=== PATIENT | male | born 1995 | race Caucasian/White ===

== ENCOUNTER 2017-09-10 11:46 | Emergency (ER) | payer OTHER ==
[2017-09-10] MEDS ORDERED: Ketorolac 60 MG/2 ML SDV IM ONE (12:35)
[2017-09-10] MEDS ORDERED: Ondansetron 4 MG Tab.DIS PO ONE ×2 (12:35→13:06)
--- NOTE | 2017-09-10 12:41 | EDM.PDOC ---
ED HPI GENERAL MEDICAL PROBLEM - General Chief Complaint: Drug or Alcohol Abuse Stated Complaint: POSSIBLE OD Time Seen by Provider: 09/10/17 12:25 Source of Information: Reports: Patient, RN History Limitations: Reports: No Limitations - History of Present Illness INITIAL COMMENTS - FREE TEXT/NARRATIVE: 22 yo male developed dental pain a couple days ago. He has been taking supratherapeutic doses of acetaminophen without relief. Now also has nausea, vomiting and diarrhea with some diffuse abdominal pain. No fever or facial swelling. Has an appt to see his dentist this coming Tuesday. Onset: Gradual Onset Date: 09/09/17 Duration: Hour(s):, Waxing/Waning Location: Reports: Face (L mandible tooth pain also), Abdomen Quality: Reports: Other (crampy abdominal pain) Severity: Moderate Improves with: Reports: None Worsens with: Reports: None Context: Reports: Other (unknown) Associated Symptoms: Reports: Nausea/Vomiting, Other (diarrhea). Denies: Fever/ Chills Treatments [employer]: Reports: Acetaminophen (Taking more than indicated on the bottle ) - Related Data Allergies Allergy/AdvReac Type Severity Reaction Status Date / Time No Known Allergies Allergy Verified 09/10/17 12:11 Home Meds: Home Meds Hydrocodone/Acetaminophen [Rahway 5-325] 1 - 2 tab PO Q4H PRN #14 tablet [Rx] Ondansetron [Zofran ODT] 4 mg PO Q6H PRN #10 tab.dis 09/10/17 [Rx] Past Medical History - Past Health History Medical/Surgical History: Denies Medical/Surgical History Social & Family History - Tobacco Use Smoking Status *Q: Current Every Day Smoker Years of Tobacco use: 4 Packs/Tins Daily: 1 ED ROS GENERAL - Review of Systems Review Of Systems: See Below Constitutional: Reports: No Symptoms HEENT: Reports: Other (tooth pain) Respiratory: Reports: No Symptoms Cardiovascular: Reports: No Symptoms Endocrine: Reports: No Symptoms GI/Abdominal: Reports: Abdominal Pain, Diarrhea, Decreased Appetite, Nausea, Vomiting. Denies: Black Stool, Bloody Stool, Constipation, Distension, Flatus, Hematemesis, Hematochezia, Melena, Stool Incontinence : Reports: No Symptoms Musculoskeletal: Reports: No Symptoms Skin: Reports: No Symptoms Neurological: Reports: No Symptoms ED EXAM, GI/ABD - Physical Exam Exam: See Below Exam Limited By: No Limitations General Appearance: Alert, WD/WN, No Apparent Distress Eyes: Bilateral: Normal Appearance Ears: Normal External Exam, Normal Canal, Hearing Grossly Normal Nose: Normal Inspection, Normal Mucosa, No Blood Throat/Mouth: Normal Inspection, Normal Lips, Normal Oropharynx, Normal Voice, No Airway Compromise, Other (Most of his teeth are in very poor condition, L mandibular premolar is very tender with percussion. ) Head: Atraumatic, Normocephalic Neck: Normal Inspection, Supple, Non-Tender. No: Lymphadenopathy (R), Lymphadenopathy (L) Respiratory/Chest: No Respiratory Distress, Lungs Clear, Normal Breath Sounds, No Accessory Muscle Use Cardiovascular: Regular Rate, Rhythm, No Edema GI/Abdominal Exam: Normal Bowel Sounds, Soft, No Distention, Tender Back Exam: Normal Inspection. No: CVA Tenderness (R), CVA Tenderness (L) Extremities: Normal Inspection, Normal Range of Motion, Non-Tender, No Pedal Edema Neurological: Alert, Oriented, CN II-XII Intact, Normal Cognition, No Motor/ Sensory Deficits Psychiatric: Normal Affect, Normal Mood Skin Exam: Warm, Dry, Intact, Normal Color, No Rash Lymphatic: No Adenopathy Course - Vital Signs Text/Narrative:: Toradol 60 mg IM, Zofran ODT 4 mg SL x 2, dicyclomine 20 mg po-feeling better after these meds. Orthostatic vitals-negative Last Recorded V/S: Last Vital Signs Temp 35.6 C 09/10/17 12:17 Pulse 83 09/10/17 12:17 Resp 20 09/10/17 12:17 BP 143/82 H 09/10/17 12:17 Pulse Ox 98 09/10/17 12:17 Orthostatic Blood Pressure [ 111/78 Standing] Orthostatic Blood Pressure [ 104/80 Sitting] Orthostatic Blood Pressure [ 115/73 Supine] - Orders/Labs/Meds Orders: Active Orders 24 hr Category Date Time Status Orthostatic Vital Signs [RC] ASDIRECTED Care 09/10/17 12:35 Active Meds: Medications Discontinued Medications Generic Name Dose Route Start Last Admin Trade Name Freq PRN Reason Stop Dose Admin Dicyclomine HCl 20 mg 09/10/17 12:43 09/10/17 13:21 Bentyl PO 09/10/17 12:44 20 mg ONETIME ONE Administration Ketorolac Tromethamine 60 mg 09/10/17 12:35 09/10/17 12:42 Toradol IM 09/10/17 12:36 60 mg ONETIME ONE Administration Ondansetron HCl 4 mg 09/10/17 12:35 09/10/17 12:42 Zofran Odt PO 09/10/17 12:36 4 mg ONETIME ONE Administration Ondansetron HCl 4 mg 09/10/17 13:06 09/10/17 13:15 Zofran Odt PO 09/10/17 13:07 4 mg ONETIME ONE Administration Departure - Departure Time of Disposition: 13:36 Disposition: Home, Self-Care 01 Condition: Good Clinical Impression: Pain, dental, Viral gastroenteritis - Discharge Information Prescriptions: Hydrocodone/Acetaminophen [Rahway 5-325] 1 - 2 tab PO Q4H PRN #14 tablet PRN Reason: Pain Ondansetron [Zofran ODT] 4 mg PO Q6H PRN #10 tab.dis PRN Reason: Nausea Referrals: PCP,None [Primary Care Provider] - Forms: ED Department Discharge Additional Instructions: Take Zofran as directed for relief from your nausea. Take Rahway as directed for pain relief, next dose after 6:30 pm today. May take ibuprofen 400 mg every 6 hrs with a snack for added relief starting after 6:30 p today. See your dentist as scheduled. Clear liquids advancing slowly to a BRAT diet as tolerated and later to a full diet as tolerated. For your diarrhea use loperamide per package instructions, can get this OTC at the pharmacy. - My Orders Last 24 Hours: My Active Orders 09/10/17 12:35 Orthostatic Vital Signs [RC] ASDIRECTED - Assessment/Plan Last 24 Hours: My Active Orders 09/10/17 12:35 Orthostatic Vital Signs [RC] ASDIRECTED
[2017-09-10] MEDS ORDERED: Dicyclomine 10 MG Cap PO ONE (12:43)
== END 2017-09-10 14:45 | disposition home or self-care (01) ==
LOC: JP.ED 11:46
DX: K08.89 Other specified disorders of teeth and supporting structures (principal); A08.4 Viral intestinal infection, unspecified; F17.210 Nicotine dependence, cigarettes, uncomplicated
CPT/HCPCS: 96372; 99283; A9270; J1885

== ENCOUNTER 2018-01-12 17:54 | Emergency (ER) | payer SELFPAY ==
--- NOTE | 2018-01-12 19:50 | EDM.PDOC ---
ED HPI GENERAL MEDICAL PROBLEM - General Chief Complaint: Laceration Stated Complaint: WELL CASING HIT HIM ON THE HEAD Time Seen by Provider: 01/12/18 19:11 Source of Information: Reports: Patient History Limitations: Reports: No Limitations ( still seem like an ice cold) - History of Present Illness INITIAL COMMENTS - FREE TEXT/NARRATIVE: This man hit in the head with a well casing while at work a couple of hours ago. He said he didn't have loss of consciousness but he was dazed for about 30 seconds. - Related Data Allergies Allergy/AdvReac Type Severity Reaction Status Date / Time No Known Allergies Allergy Verified 01/12/18 18:29 Home Meds: Home Meds NK [No Known Home Meds] 01/12/18 [History] Past Medical History - Past Health History Medical/Surgical History: Denies Medical/Surgical History Musculoskeletal History: Reports: Fracture Neurological History: Reports: Concussion, Migraines Social & Family History - Tobacco Use Smoking Status *Q: Heavy Tobacco Smoker Years of Tobacco use: 6 Packs/Tins Daily: 1 - Recreational Drug Use Recreational Drug Use: No ED ROS GENERAL - Review of Systems Review Of Systems: ROS reveals no pertinent complaints other than HPI. ED EXAM, SKIN/RASH Exam: See Below Exam Limited By: No Limitations General Appearance: Alert, WD/WN, No Apparent Distress Head: Other (There is a 4 cm vertical full thickness laceration to the posterior scalp. It's already been cleaned by the nurse.) Neck: Supple Neurological: Alert, Oriented, CN II-XII Intact, Normal Cognition Skin: Other (As above) Course - Vital Signs Last Recorded V/S: Last Vital Signs Temp 36.0 C 01/12/18 18:28 Pulse 73 01/12/18 18:28 Resp 18 01/12/18 18:28 BP 134/77 01/12/18 18:28 Pulse Ox 95 01/12/18 18:28 - Re-Assessments/Exams Free Text/Narrative Re-Assessment/Exam: 01/12/18 19:48 Procedure: Laceration repair. The wound is already been cleaned and irrigated no anesthesia was required although it was offered the laceration was closed with deidre giving a good result. Departure - Departure Time of Disposition: 19:48 Disposition: Home, Self-Care 01 Condition: Fair Clinical Impression: Scalp laceration - Discharge Information Referrals: PCP,None [Primary Care Provider] - Additional Instructions: Wash the area daily with soap and water or shampoo. Keep the area clean. See your doctor or health care provider in one week for staple removal.
== END 2018-01-12 19:53 | disposition home or self-care (01) ==
LOC: JP.ED 17:54
DX: S01.01XA Laceration without foreign body of scalp, initial encounter (principal); F17.210 Nicotine dependence, cigarettes, uncomplicated; W22.8XXA Striking against or struck by other objects, initial encounter; Y99.0 Civilian activity done for income or pay
CPT/HCPCS: 12002; 99283-25